=== PATIENT | male | born 1995 | race Caucasian/White ===

== ENCOUNTER 2016-07-07 11:11 | Emergency (ER) | payer SELFPAY ==
[2016-07-07 11:42] VITALS: BP 133/56
--- NOTE | 2016-07-07 13:02 | ERNOTE ---
Integumentary HPI - Narrative Date of Service: 07/07/16 - General Time Seen by Provider: 07/07/16 12:52 - Immun/Allergies/Home Medications Immunizations: IMMUNIZATION HX Immunizations Up to Date Yes History of Influenza Vaccine No Hx Pneumococcal Vaccination Yes Allergies/Adverse Reactions: Allergies Allergy/AdvReac Type Severity Reaction Status Date / Time Penicillins Allergy Intermediate Hives Verified 07/07/16 11:37 Home Medications: HOME MEDICATIONS Permethrin [Elimite] 60 gm TP ONCE #1 cream..g. 07/07/16 [Last Taken Unknown] - History of Present Illness Narrative: Pt. comes in with c/o rash on his hands, back, stomach, and thighs for four weeks. Pt. denies any SOB, CP, NVD, dyspnea, fever, numbness or tingling. Pt. denies any prehospital treatment but states that his girlfriend has had a similar rash for a two weeks. Review of Systems - Review of Systems Constitutional: Present: no symptoms reported. Absent: recent illness, fever, chills, weakness, fatigue, malaise EYE: Present: no symptoms reported ENT: Present: no symptoms reported Respiratory: Present: no symptoms reported. Absent: shortness of breath, cough , wheezing Cardiology: Present: no symptoms reported. Absent: chest pain, palpitations, edema Gastrointestinal/Abdominal: Present: no symptoms reported. Absent: nausea, vomiting, diarrhea Genitourinary: Present: no symptoms reported Musculoskeletal: Present: no symptoms reported. Absent: back pain, joint pain Skin: Present: rash Neurological: Present: no symptoms reported. Absent: headache, dizziness/light- headedness, numbness, tingling All Other Systems: All systems neg except as marked - Patient's Past Medical History Patient History - Medical: No pertinent hx Patient History - Cardiac/Respiratory: No pertinent hx Patient History - Cancer: No Hx of Cancer Patient History - Surgical Procedures: Ear Tubes - Social History Smoking Status: Never smoker - Immunizations Immunizations Up to Date: Yes Hx Pneumococcal Vaccination: Yes History of Influenza Vaccine: No Physical Exam - Physical Exam General Appearance: Present: wd/wn, alert, no apparent distress Eye Exam: Normal inspection: bilateral, PERRL: bilateral, EOMI: bilateral Ears, Nose, Throat: Present: normal ENT inspection, normal pharynx Neck: Present: normal inspection, nontender. Absent: lymphadenopathy (R), lymphadenopathy (L) Respiratory: Present: no respiratory distress, normal breath sounds, no accessory muscle use, chest nontender, lungs clear Cardiovascular/Chest: Present: regular rate, rhythm, no murmur, normal peripheral pulses Gastrointestinal/Abdominal: Present: normal bowel sounds, nontender, nondistended, soft, no organomegaly Back Exam: Present: normal range of motion, no CVA tenderness, no vertebral tenderness Extremity Exam: Present: non-tender, normal range of motion, no edema Neurological Exam: Present: alert, oriented, normal mood/affect, no motor/ sensory deficits Skin Exam: Present: normal color, warm/dry, skin rash ED Progress - Vital Signs Patient's Vital Signs:: I have reviewed the patient's vital signs. Vital Signs: Vital Signs 07/07/16 11:37 Temperature 35.8 C L Pulse Rate 84 Respiratory 15 Rate Blood Pressure 133/56 - Progress/Reassessment Chief Complaint: Rash Progress:: Unchanged Departure Clinical Impression: Scabies - Departure Disposition: Home self-care Condition: Good Instructions: Scabies, Adult Additional Instructions: Please wash all bedding in hot water and you may take benedryl for the itching Prescriptions: Permethrin [Elimite] 60 gm TP ONCE #1 cream..g.
== END 2016-07-07 13:16 | disposition home or self-care (01) ==
LOC: ER 11:11
DX: B86 Scabies (principal)